=== PATIENT | female | born 1970 | race Caucasian/White ===

== ENCOUNTER 2021-03-18 10:17 | Inpatient (IN) | payer MEDICAID, OTHER ==
[~2021-03-18] VITALS: Ht 170.2 cm; Wt 123.0 kg
[2021-03-18 11:03] LABS: Basophils # (auto) 0.1 10 ^3/uL (0-0.2); Basophils % (auto) 0.8 % (0.0-2.0); Eosinophils # (auto) 0 10 ^3/uL (0-0.8); Eosinophils % (auto) 0.1 % (0.0-7.0); Hematocrit 44.2 % (36.0-46.0); Hemoglobin 14.7 g/dL (12.2-16.2); Lymphocytes # (auto) 1.7 10 ^3/uL (0.4-5.4); Lymphocytes % (auto) 21.6 % (10.0-50.0); Mean Corpuscular Hemoglobin 29.5 pg (28.0-32.0); Mean Corpuscular Hgb Conc. 33.2 g/dL (32.0-36.0); Monocytes # (auto) 0.6 10 ^3/uL (0-1.3); Monocytes % (auto) 8.4 % (0.0-12.0); Neutrophils # (auto) 5.3 10 ^3/uL (1.6-8.6); Neutrophils % (auto) 69.1 % (37.0-80.0); Nucleated Red Blood Cells % 0.1 %; Red Blood Cells 4.97 10^6/uL (4.0-5.20); Red Cell Distribution Width 14.2 % (11.8-14.3); White Blood Cell 7.7 10^3/uL (4.4-10.8)
[2021-03-18] MEDS ORDERED: DexAMETHasone SOD PHOS 10MG/1ML VIAL INJ IV ONE (11:45)
[2021-03-18 12:27] LABS: INR 1.12 (0.9-1.15); Partial Thromboplastin Time 24.2 sec (23.6-33.0)
[2021-03-18 13:09] LABS: Albumin 2.2 g/dL (3.4-5.0); Anion Gap 11 (5-15); Blood Urea Nitrogen 13 mg/dL (7-18); Calcium 8.4 mg/dL (8.5-10.1); Carbon Dioxide 26 mmol/L (21-32); Chloride 102 mmol/L (98-107); Glucose 98 mg/dL (74-106); Sodium 139 mmol/L (136-145)
[2021-03-18 13:11] LABS: Alanine Aminotransferase 44 U/L (13-56); Aspartate Aminotransferase 48 U/L (15-37); BUN/Creatinine Ratio 15.7; GFR African American 93 mL/min; GFR Non-African American 77 mL/min
[2021-03-18 13:15] LABS: Alkaline Phosphatase 75 U/L (45-117); Bilirubin, Total 0.6 mg/dL (0.2-1.0); Total Protein 7.3 g/dL (6.4-8.2)
[2021-03-18 13:27] LABS: Potassium 2.9 mmol/L (3.5-5.1)
[2021-03-18] MEDS ORDERED: guaiFENesin-DM 100/10mg/5ml SYR PO PRN (14:15)
[2021-03-18] MEDS ORDERED: ONDANSETRON HCL 4 MG/2 ML VIAL IV PRN (14:15)
[2021-03-18] MEDS ORDERED: REMDESIVIR PER PHARMACY 0 ML IV SCH (14:15)
[2021-03-18] MEDS ORDERED: MORPHINE SULFATE INJECTION 2 MG/ML SYRG IV PRN ×2 (14:15)
[2021-03-18] MEDS ORDERED: HYDROcodone-ACET 5/325MG TAB PO PRN (14:15)
[2021-03-18] MEDS ORDERED: DIPHENOXYLATE W/ATROPINE 2.5 MG TAB PO PRN (14:15)
[2021-03-18] MEDS ORDERED: ACETAMINOPHEN 500 MG TAB PO PRN ×2 (14:15)
[2021-03-18] MEDS ORDERED: NITROGLYCERIN 0.4 MG SL TAB SL PRN (14:15)
[2021-03-18] MEDS ORDERED: POTASSIUM CHLORIDE 60 MEQ, LIDOCAINE 1% (LOCAL ANESTH.) 6 ML in SODIUM CHL 0.9% 500 ML IV ONE (14:30)
[2021-03-18] MEDS: AZITHROMYCIN 500MG/ 250ML 250 ML IV SCH (15:01)
[2021-03-18 17:44] LABS: CRP High Sensitivity 11.6 mg/dL (< 0.3)
[2021-03-18] MEDS ORDERED: REMDESIVIR 200 MG in NS 210ml LOADING DOSE ADULT IV ONE (18:00)
[2021-03-18] MEDS: BUDESONIDE (INHALATION) 180 MCG IH IN SCH (19:03)
[2021-03-18] MEDS: ALBUTEROL SULF HFA 90MCG INH 200DOSE IN PRN (19:03)
[2021-03-18 22:30] VITALS: BP 116/50
[2021-03-18] MEDS: ENOXAPARIN SOD 40 MG/0.4 ML SYRINGE SC SCH (23:10)
[2021-03-19 01:15] VITALS: BP 116/50
[2021-03-19] MEDS ORDERED: ALBU2SYP10 PO (01:40)
[2021-03-19 05:12] VITALS: BP 122/59
[2021-03-19 05:43] LABS: Basophils # (auto) 0 10 ^3/uL (0-0.2); Basophils % (auto) 0.3 % (0.0-2.0); Eosinophils # (auto) 0 10 ^3/uL (0-0.8); Hematocrit 38.6 % (36.0-46.0); Hemoglobin 13.2 g/dL (12.2-16.2); Lymphocytes # (auto) 0.8 10 ^3/uL (0.4-5.4); Lymphocytes % (auto) 11.9 % (10.0-50.0); Mean Corpuscular Hemoglobin 30.1 pg (28.0-32.0); Mean Corpuscular Hgb Conc. 34.1 g/dL (32.0-36.0); Mean Corpuscular Volume 88.2 fL (80.0-100.0); Monocytes # (auto) 0.9 10 ^3/uL (0-1.3); Monocytes % (auto) 12.8 % (0.0-12.0); Neutrophils # (auto) 5.2 10 ^3/uL (1.6-8.6); Nucleated Red Blood Cells % 0.1 %; Red Blood Cells 4.38 10^6/uL (4.0-5.20); Red Cell Distribution Width 13.8 % (11.8-14.3)
[2021-03-19] MEDS: BUDESONIDE (INHALATION) 180 MCG IH IN SCH ×2 (05:54→21:10)
[2021-03-19] MEDS: ALBUTEROL SULF HFA 90MCG INH 200DOSE IN PRN ×2 (05:54→21:10)
[2021-03-19 05:55] LABS: Albumin 2.1 g/dL (3.4-5.0); Calcium 8.5 mg/dL (8.5-10.1); Potassium 3.4 mmol/L (3.5-5.1)
[2021-03-19 06:07] LABS: BUN/Creatinine Ratio 27.3; Bilirubin, Total 0.4 mg/dL (0.2-1.0); Total Protein 6.5 g/dL (6.4-8.2)
[2021-03-19 09:00] VITALS: BP 120/58
[2021-03-19] MEDS: DexAMETHasone SOD PHOS 10MG/1ML VIAL INJ IV SCH (09:07)
[2021-03-19] MEDS: ASCORBIC ACID 1,000 MG TAB PO SCH (09:08)
[2021-03-19] MEDS: PANTOPRAZOLE 40 MG TAB PO SCH (09:08)
[2021-03-19] MEDS: ZINC SULFATE 220mg CAP or TAB PO SCH (09:08)
[2021-03-19] MEDS: AZITHROMYCIN 500MG/ 250ML 250 ML IV SCH (09:08)
[2021-03-19] MEDS: CHOLECALCIFEROL (VITD3) 2,000 UNIT CAP/TAB PO SCH (09:09)
[2021-03-19] MEDS: ENOXAPARIN SOD 40 MG/0.4 ML SYRINGE SC SCH ×2 (09:09→22:17)
[2021-03-19] MEDS: IVERMECTIN 3 MG TAB PO SCH (11:17)
[2021-03-19 13:00] VITALS: BP 119/68
[2021-03-19] MEDS: REMDESIVIR 100mg 100 MG in SODIUM CHL 0.9% 230 ML IV SCH (16:19)
[2021-03-19 17:00] VITALS: BP 114/63
[2021-03-19 22:00] VITALS: BP 107/65
[2021-03-20 05:12] VITALS: BP 113/79
[2021-03-20 06:59] LABS: Potassium 4.3 mmol/L (3.5-5.1)
[2021-03-20 07:21] LABS: Albumin 1.6 g/dL (3.4-5.0); Bilirubin, Total 0.4 mg/dL (0.2-1.0); Calcium 7.8 mg/dL (8.5-10.1); Total Protein 6.3 g/dL (6.4-8.2)
[2021-03-20 09:00] VITALS: BP 106/73
[2021-03-20] MEDS: ALBUTEROL SULF HFA 90MCG INH 200DOSE IN PRN ×2 (09:32→20:02)
[2021-03-20] MEDS: BUDESONIDE (INHALATION) 180 MCG IH IN SCH ×2 (09:32→19:07)
[2021-03-20] MEDS: DexAMETHasone SOD PHOS 10MG/1ML VIAL INJ IV SCH (09:55)
[2021-03-20] MEDS: PANTOPRAZOLE 40 MG TAB PO SCH (09:55)
[2021-03-20] MEDS: ZINC SULFATE 220mg CAP or TAB PO SCH (09:55)
[2021-03-20] MEDS: AZITHROMYCIN 500MG/ 250ML 250 ML IV SCH (09:55)
[2021-03-20] MEDS: ENOXAPARIN SOD 40 MG/0.4 ML SYRINGE SC SCH ×2 (09:56→22:20)
[2021-03-20] MEDS: ASCORBIC ACID 1,000 MG TAB PO SCH (09:56)
[2021-03-20] MEDS: CHOLECALCIFEROL (VITD3) 2,000 UNIT CAP/TAB PO SCH (09:56)
[2021-03-20] MEDS: IVERMECTIN 3 MG TAB PO SCH (12:17)
[2021-03-20 13:00] VITALS: BP 115/70
[2021-03-20] MEDS: REMDESIVIR 100mg 100 MG in SODIUM CHL 0.9% 230 ML IV SCH (15:52)
[2021-03-20 16:37] VITALS: BP 124/73
[2021-03-20 22:00] VITALS: BP 14/38
[2021-03-21 05:00] VITALS: BP 109/69
[2021-03-21 05:53] LABS: Albumin 1.9 g/dL (3.4-5.0); Calcium 7.7 mg/dL (8.5-10.1); Potassium 3.2 mmol/L (3.5-5.1)
[2021-03-21 05:56] LABS: BUN/Creatinine Ratio 28.2; Bilirubin, Total 0.4 mg/dL (0.2-1.0); Total Protein 5.9 g/dL (6.4-8.2)
[2021-03-21] MEDS: ALBUTEROL SULF HFA 90MCG INH 200DOSE IN PRN (06:42)
[2021-03-21] MEDS: BUDESONIDE (INHALATION) 180 MCG IH IN SCH ×2 (06:42→21:35)
[2021-03-21 09:00] VITALS: BP 100/68
[2021-03-21] MEDS: PANTOPRAZOLE 40 MG TAB PO SCH (09:42)
[2021-03-21] MEDS: AZITHROMYCIN 500MG/ 250ML 250 ML IV SCH (09:42)
[2021-03-21] MEDS: DexAMETHasone SOD PHOS 10MG/1ML VIAL INJ IV SCH (09:42)
[2021-03-21] MEDS: ZINC SULFATE 220mg CAP or TAB PO SCH (09:42)
[2021-03-21] MEDS: ASCORBIC ACID 1,000 MG TAB PO SCH (09:43)
[2021-03-21] MEDS: CHOLECALCIFEROL (VITD3) 2,000 UNIT CAP/TAB PO SCH (09:43)
[2021-03-21] MEDS: IVERMECTIN 3 MG TAB PO SCH (09:43)
[2021-03-21] MEDS: ENOXAPARIN SOD 40 MG/0.4 ML SYRINGE SC SCH ×2 (09:44→21:29)
[2021-03-21 13:00] VITALS: BP 110/84
[2021-03-21] MEDS ORDERED: POTASSIUM CHL 20 Meq TABLET PO ONE (14:30)
[2021-03-21] MEDS: REMDESIVIR 100mg 100 MG in SODIUM CHL 0.9% 230 ML IV SCH (15:32)
[2021-03-21 16:43] VITALS: BP 128/60
[2021-03-21 22:00] VITALS: BP 107/48
[2021-03-22 05:00] VITALS: BP 115/60
[2021-03-22] MEDS: ALBUTEROL SULF HFA 90MCG INH 200DOSE IN PRN ×2 (06:31→22:07)
[2021-03-22] MEDS: BUDESONIDE (INHALATION) 180 MCG IH IN SCH ×2 (06:31→22:07)
[2021-03-22 06:52] LABS: Albumin 1.9 g/dL (3.4-5.0); Calcium 7.8 mg/dL (8.5-10.1); Potassium 3.5 mmol/L (3.5-5.1)
[2021-03-22 06:55] LABS: BUN/Creatinine Ratio 25.5
[2021-03-22 06:57] LABS: Bilirubin, Total 0.4 mg/dL (0.2-1.0); Total Protein 5.8 g/dL (6.4-8.2)
[2021-03-22] MEDS: AZITHROMYCIN 500MG/ 250ML 250 ML IV SCH (08:56)
[2021-03-22] MEDS: DexAMETHasone SOD PHOS 10MG/1ML VIAL INJ IV SCH (08:56)
[2021-03-22] MEDS: ZINC SULFATE 220mg CAP or TAB PO SCH (08:57)
[2021-03-22] MEDS: PANTOPRAZOLE 40 MG TAB PO SCH (08:57)
[2021-03-22] MEDS: ASCORBIC ACID 1,000 MG TAB PO SCH (08:58)
[2021-03-22] MEDS: CHOLECALCIFEROL (VITD3) 2,000 UNIT CAP/TAB PO SCH (08:58)
[2021-03-22] MEDS: IVERMECTIN 3 MG TAB PO SCH (08:58)
[2021-03-22] MEDS: ENOXAPARIN SOD 40 MG/0.4 ML SYRINGE SC SCH ×2 (08:59→21:19)
[2021-03-22 09:00] VITALS: BP 117/47
[2021-03-22 13:00] VITALS: BP 97/50
[2021-03-22] MEDS: REMDESIVIR 100mg 100 MG in SODIUM CHL 0.9% 230 ML IV SCH (15:39)
[2021-03-22 16:39] VITALS: BP 109/47
[2021-03-22 22:00] VITALS: BP 114/57
[2021-03-23 05:00] VITALS: BP 128/43
[2021-03-23 07:05] LABS: Basophils # (auto) 0 10 ^3/uL (0-0.2); Basophils % (auto) 0.2 % (0.0-2.0); Eosinophils # (auto) 0 10 ^3/uL (0-0.8); Eosinophils % (auto) 0.1 % (0.0-7.0); Hematocrit 37.9 % (36.0-46.0); Hemoglobin 12.6 g/dL (12.2-16.2); Lymphocytes # (auto) 1.7 10 ^3/uL (0.4-5.4); Lymphocytes % (auto) 16.5 % (10.0-50.0); Mean Corpuscular Hemoglobin 29.5 pg (28.0-32.0); Mean Corpuscular Hgb Conc. 33.2 g/dL (32.0-36.0); Mean Corpuscular Volume 88.7 fL (80.0-100.0); Monocytes # (auto) 1.2 10 ^3/uL (0-1.3); Monocytes % (auto) 11.3 % (0.0-12.0); Neutrophils # (auto) 7.6 10 ^3/uL (1.6-8.6); Neutrophils % (auto) 71.9 % (37.0-80.0); Nucleated Red Blood Cells % 0.2 %; Red Blood Cells 4.28 10^6/uL (4.0-5.20); Red Cell Distribution Width 13.9 % (11.8-14.3); White Blood Cell 10.5 10^3/uL (4.4-10.8)
[2021-03-23 07:15] LABS: Potassium 3.8 mmol/L (3.5-5.1)
[2021-03-23 07:31] LABS: Albumin 1.9 g/dL (3.4-5.0); BUN/Creatinine Ratio 27.1; Bilirubin, Total 0.4 mg/dL (0.2-1.0); Calcium 7.8 mg/dL (8.5-10.1); Total Protein 5.7 g/dL (6.4-8.2)
[2021-03-23 08:46] VITALS: BP 104/53
[2021-03-23] MEDS: IVERMECTIN 3 MG TAB PO SCH (09:30)
[2021-03-23] MEDS: ENOXAPARIN SOD 40 MG/0.4 ML SYRINGE SC SCH ×2 (09:30→21:16)
[2021-03-23] MEDS: CHOLECALCIFEROL (VITD3) 2,000 UNIT CAP/TAB PO SCH (09:30)
[2021-03-23] MEDS: PANTOPRAZOLE 40 MG TAB PO SCH (09:30)
[2021-03-23] MEDS: DexAMETHasone SOD PHOS 10MG/1ML VIAL INJ IV SCH (09:30)
[2021-03-23] MEDS: ZINC SULFATE 220mg CAP or TAB PO SCH (09:31)
[2021-03-23] MEDS: ASCORBIC ACID 1,000 MG TAB PO SCH (09:31)
[2021-03-23] MEDS: ALBUTEROL SULF HFA 90MCG INH 200DOSE IN PRN ×2 (10:22→20:57)
[2021-03-23] MEDS: BUDESONIDE (INHALATION) 180 MCG IH IN SCH ×2 (10:22→20:57)
[2021-03-23 12:44] VITALS: BP 112/57
[2021-03-23 17:00] VITALS: BP 120/76
[2021-03-23 21:33] VITALS: BP 126/63
[2021-03-24 05:00] VITALS: BP 129/63
[2021-03-24] MEDS: BUDESONIDE (INHALATION) 180 MCG IH IN SCH (06:25)
[2021-03-24 09:00] VITALS: BP 126/72
[2021-03-24] MEDS: DexAMETHasone SOD PHOS 10MG/1ML VIAL INJ IV SCH (09:40)
[2021-03-24] MEDS: ASCORBIC ACID 1,000 MG TAB PO SCH (09:40)
[2021-03-24] MEDS: ZINC SULFATE 220mg CAP or TAB PO SCH (09:40)
[2021-03-24] MEDS: ENOXAPARIN SOD 40 MG/0.4 ML SYRINGE SC SCH (09:40)
[2021-03-24] MEDS: CHOLECALCIFEROL (VITD3) 2,000 UNIT CAP/TAB PO SCH (09:40)
[2021-03-24] MEDS: PANTOPRAZOLE 40 MG TAB PO SCH (09:41)
[2021-03-24 13:00] VITALS: BP 111/59
== END 2021-03-24 15:17 | disposition home or self-care (01) | DRG 137 ==
LOC: EDBD 10:17 → ER 10:17 → TELE 14:12 → TELE-EAST 22:18
PROVIDERS: ADMIT Nurse Practitioner Acute Care; ATTEND Internal Medicine
PROC: XW033E5 Introduction of Remdesivir Anti-infective into Peripheral Vein, Percutaneous Approach, New Technology Group 5 (ICD-10-PCS; principal; 2021-03-18)
DX: U07.1 COVID-19 (principal); J96.01 Acute respiratory failure with hypoxia; J12.82 Pneumonia due to coronavirus disease 2019; D89.839 Cytokine release syndrome, grade unspecified; J45.909 Unspecified asthma, uncomplicated; E66.9 Obesity, unspecified; E03.9 Hypothyroidism, unspecified; J98.11 Atelectasis; Z90.710 Acquired absence of both cervix and uterus; Z68.41 Body mass index [BMI] 40.0-44.9, adult
CPT/HCPCS: 36415; 36600; 71045; 80053; 82550; 82553; 82728; 82805; 83615; 84484; 85025; 85379; 85610; 85730; 86141; 87040; 87426; 93005; 93970; 94640; 96365; 96367; 96375; 99291; G0378; J1100; J2001